=== PATIENT | female | born 1960 | race American Indian/Alaskan Native ===

== ENCOUNTER 2017-07-10 15:30 | Inpatient (IN) | payer SELFPAY ==
[2017-07-10 16:12] LABS: Absolute Lymphocytes (CBC) 2.7 K/uL (0.7-4.9); Absolute Monocytes 0.6 K/uL (0.1-1.3); Absolute Neutrophil 4.1 K/uL (1.8-8.0); Basophils % 1.3 % (0-1.3); Eosinophils % 2.5 % (0-4.4); Hematocrit 19.4 % (36.0-45.0); Lymphocytes % 34.9 % (15.3-44.8); MCH 20.2 pg (27.0-35.0); MCV 68.1 fL (80-100); MPV 7.2 fL (7.6-11.3); Monocytes % 8.2 % (3.3-12.3); RBC Red Blood Cell Count 2.85 M/uL (3.86-4.86)
[2017-07-10 16:24] LABS: Bicarbonate 26 mEq/L (21-31); Glucose Level 136 mg/dL (65-120); Lipase 43 U/L (22-51); Potassium 3.6 mEq/L (3.6-5.0); Sodium Level 139 mEq/L (135-145)
[2017-07-10 16:30] LABS: ALT/SGPT 17 IU/L (10-60); AST/SGOT 19 IU/L (10-42); Albumin 4.1 g/dL (3.2-5.5); Alkaline Phosphatase 68 IU/L (42-121); BUN Blood Urea Nitrogen 11 mg/dL (6-20); Bilirubin Direct < 0.1 mg/dL (0-0.2); Bilirubin Total 0.3 mg/dL (0.3-1.2); Protein, Total 7.7 g/dL (6.0-8.3)
[2017-07-10 16:37] LABS: Urine White Blood Cell Casts OK
[2017-07-10 16:38] LABS: Anisocytosis 3+; Blood Morphology Comment NOTED (NOT SEEN); Hypochromasia 1+; Platelet Estimate INCR
--- NOTE | 2017-07-10 16:48 | EDPHYS ---
Physician Documentation [facility] Name: Tori Brown Age: 57 yrs Sex: Female : 1960 Arrival Date: 07/10/2017 Time: 15:33 Bed 30 Private MD: Anita Ortega ED Physician Dustin Mcconnell HPI: 07/10 16:46 This 57 yrs old Other Female presents to ER via Ambulatory with complaints of Abnormal jr8 Lab Results. 16:46 Patient sent to ED after getting lab results back. Found to be moderately anemic withy jr8 hemoglobin at 5.5. Has been feeling more tired and fatigued . Severity of symptoms: At their worst the symptoms were moderate in the emergency department the symptoms are unchanged. The patient has not experienced similar symptoms in the past. The patient has been recently seen by a physician:. Historical: - Allergies: 15:38 No Known Allergies; aa5 - Home Meds: 15:38 omeprazole Oral [Active]; aa5 - PMHx: 15:38 GERD; aa5 - PSHx: 15:38 None; aa5 - Immunization history:: Adult Immunizations unknown. - Social history:: Smoking status: Patient/guardian denies using tobacco. - Ebola Screening: : No symptoms or risks identified at this time. ROS: 16:44 Eyes: Negative for injury, pain, redness, and discharge, ENT: Negative for injury, jr8 pain, and discharge, Neck: Negative for injury, pain, and swelling, Cardiovascular: Negative for chest pain, palpitations, and edema, Respiratory: Negative for shortness of breath, cough, wheezing, and pleuritic chest pain, Abdomen/GI: Negative for abdominal pain, nausea, vomiting, diarrhea, and constipation, Back: Negative for injury and pain, MS/Extremity: Negative for injury and deformity, Skin: Negative for injury, rash, and discoloration, Neuro: Negative for headache, weakness, numbness, tingling, and seizure. 16:44 Constitutional: Positive for fatigue, malaise. Exam: 16:36 Head/Face: Normocephalic, atraumatic. ENT: Nares patent. No nasal discharge, no jr8 septal abnormalities noted. Tympanic membranes are normal and external auditory canals are clear. Oropharynx with no redness, swelling, or masses, exudates, or evidence of obstruction, uvula midline. Mucous membranes moist. Neck: Trachea midline, no thyromegaly or masses palpated, and no cervical lymphadenopathy. Supple, full range of motion without nuchal rigidity, or vertebral point tenderness. No Meningismus. Cardiovascular: Regular rate and rhythm with a normal S1 and S2. No gallops, murmurs, or rubs. Normal PMI, no JVD. No pulse deficits. Respiratory: Lungs have equal breath sounds bilaterally, clear to auscultation and percussion. No rales, rhonchi or wheezes noted. No increased work of breathing, no retractions or nasal flaring. Back: No spinal tenderness. No costovertebral tenderness. Full range of motion. Skin: Warm, dry with normal turgor. Mild palor noted MS/ Extremity: Pulses equal, no cyanosis. Neurovascular intact. Full, normal range of motion. Neuro: Awake and alert, GCS 15, oriented to person, place, time, and situation. Cranial nerves II-XII grossly intact. Motor strength 5/5 in all extremities. Sensory grossly intact. Cerebellar exam normal. Normal gait. 16:36 Abdomen/GI: Inspection: abdomen appears normal, Bowel sounds: active, all quadrants, Palpation: soft, in all quadrants, mass, is not appreciated, rebound tenderness, is not appreciated, voluntary guarding, is not appreciated, involuntary guarding, is not appreciated, no appreciated organomegaly, Rectal exam: rectal tone normal, Stool: brown, guaiac negative, hemorrhoid(s), external, without bleeding, without inflammation, without thrombosis, without pain, mass, is not appreciated, swelling, is not appreciated, tenderness, is not appreciated, fecal impaction, is not appreciated, the exam is chaperoned by the nurse, Indicators: McBurney's point is not tender, Ordoñez's sign is negative, Rovsing's sign is negative, Liver: no appreciated palpable abnormalities, tenderness, is not appreciated. 16:37 Eyes: Periorbital structures: appear normal, Pupils: equal, round, and reactive to jr8 light and accomodation, Extraocular movements: intact throughout, Conjunctiva: pale, bilaterally, Corneas: are normal, Sclera: no appreciated abnormality, Anterior chamber: normal, Lids and lashes: appear normal. Vital Signs: 15:37 BP 158 / 82; Pulse 113; Resp 16 S; Temp 99.1(TE); Pulse Ox 100% on R/A; Pain 0/10; aa5 15:40 Weight 54.88 kg (R); Height 4 ft. 11 in. (149.86 cm) (R); aa5 17:30 BP 131 / 68; Pulse 101; Resp 16; Pulse Ox 100% on R/A; rk2 18:30 BP 122 / 59; Pulse 90; Resp 17; Pulse Ox 100% on R/A; rk2 15:40 Body Mass Index 24.44 (54.88 kg, 149.86 cm) aa5 MDM: 15:45 Patient medically screened. jr8 16:45 Data reviewed: vital signs, nurses notes, lab test result(s), radiologic studies, CT jr8 scan, and as a result, I will admit patient. Data interpreted: Pulse oximetry: on room air is 100 %. Interpretation: normal. Counseling: I had a detailed discussion with the patient and/or guardian regarding: the historical points, exam findings, and any diagnostic results supporting the discharge/admit diagnosis, lab results, radiology results, the need for further work-up and treatment in the hospital. Physician consultation: Haim Ruggiero DO was called at 16:46, was contacted at 16:46, regarding admission, to the telemetry unit. consult, patient's condition, and will see patient. 07/10 15:54 Order name: Basic Metabolic Panel; Complete Time: 16:36 jr8 07/10 15:54 Order name: CBC with Diff; Complete Time: 16:43 jr8 07/10 15:54 Order name: Creatinine for Radiology; Complete Time: 16:27 jr8 07/10 15:54 Order name: Hepatic Function; Complete Time: 16:36 jr8 07/10 15:54 Order name: Lipase; Complete Time: 16:36 jr8 07/10 15:54 Order name: TS jr8 07/10 16:19 Order name: CBC Smear Scan; Complete Time: 16:43 EDMS 07/10 16:25 Order name: Bb Add On ag 07/10 16:27 Order name: Packed RBC Leukored -1 EDPA 07/10 16:35 Order name: ABO/RH no charge; Complete Time: 16:36 EDMS 07/10 16:36 Order name: Iron Level; Complete Time: 17:29 jr8 07/10 16:36 Order name: Ferritin 07/10 16:36 Order name: TIBC; Complete Time: 17:29 07/10 16:36 Order name: B12; Complete Time: 17:29 07/10 15:54 Order name: IV Saline Lock; Complete Time: 16:04 07/10 15:54 Order name: Labs collected and sent; Complete Time: 16:04 07/10 15:54 Order name: Urine Dipstick-Ancillary (obtain specimen); Complete Time: 16:41 07/10 15:54 Order name: CT Abd/Pelvis - W/Contrast; Complete Time: 18:28 07/10 16:36 Order name: Folic Acid,Serum (folate); Complete Time: 17:07/10 16:47 Order name: Urine Dipstick--Ancillary (enter results); Complete Time: 17:00 ag Administered Medications: No medications were administered Disposition: 07/11 07:27 Co-signature as Attending Physician, Dustin Mcconnell MD I agree with the assessment and kdr plan of care. Disposition: 07/10/17 16:47 Hospitalization ordered by Haim Ruggiero for Observation. Preliminary diagnosis is Acute anemia . - Bed requested for Telemetry/MedSurg (observation). - Status is Observation. rk2 - Condition is Stable. - Problem is new. - Symptoms have improved. UTI on Admission? No Signatures: Dispatcher [employer] EDMS Dustin Mcconnell MD MD [facility] Maddy Mcdonald RN RN aa5 Ronn Garcia PA PA jr8 Amparo Elder Rhonda, RN RN rk2 Corrections: (The following items were deleted from the chart) 07/10 16:38 16:36 Head/Face: Normocephalic, atraumatic. ENT: Nares patent. No nasal discharge, no jr8 septal abnormalities noted. Tympanic membranes are normal and external auditory canals are clear. Oropharynx with no redness, swelling, or masses, exudates, or evidence of obstruction, uvula midline. Mucous membranes moist. Neck: Trachea midline, no thyromegaly or masses palpated, and no cervical lymphadenopathy. Supple, full range of motion without nuchal rigidity, or vertebral point tenderness. No Meningismus. Cardiovascular: Regular rate and rhythm with a normal S1 and S2. No gallops, murmurs, or rubs. Normal PMI, no JVD. No pulse deficits. Respiratory: Lungs have equal breath sounds bilaterally, clear to auscultation and percussion. No rales, rhonchi or wheezes noted. No increased work of breathing, no retractions or nasal flaring. Back: No spinal tenderness. No costovertebral tenderness. Full range of motion. Skin: Warm, dry with normal turgor. Normal color with no rashes, no lesions, and no evidence of cellulitis. MS/ Extremity: Pulses equal, no cyanosis. Neurovascular intact. Full, normal range of motion. Neuro: Awake and alert, GCS 15, oriented to person, place, time, and situation. Cranial nerves II-XII grossly intact. Motor strength 5/5 in all extremities. Sensory grossly intact. Cerebellar exam normal. Normal gait. jr8 17:50 16:47 Hospitalization Ordered by Haim Ruggiero DO for Observation. Preliminary ag diagnosis is Acute anemia . Bed requested for Telemetry/MedSurg (observation). Status is Observation. Condition is Stable. Problem is new. Symptoms have improved. UTI on Admission? No. jr8 19:28 17:50 07/10/2017 16:47 Hospitalization Ordered by Haim Ruggiero DO for Observation. rk2 Preliminary diagnosis is Acute anemia . Bed requested for Telemetry/MedSurg (observation). Status is Observation. Condition is Stable. Problem is new. Symptoms have improved. UTI on Admission? No. ag
--- NOTE | 2017-07-10 16:48 | ER ---
Nurse's Notes [facility] Name: Tori Brown Age: 57 yrs Sex: Female : 1960 Arrival Date: 07/10/2017 Time: 15:33 Bed 30 Private MD: Anita Ortega Diagnosis: Acute anemia Presentation: 07/10 15:35 Presenting complaint: Patient states: "Anita Ortega did some blood work and they aa5 said my hemoglobin was 5.5". Pt states "I did have 2 black bowel movements back in February and they told me I had a stomach ulcer". Transition of care: patient was not received from another setting of care. Onset of symptoms was July 10, 2017. Risk Assessment: Do you want to hurt yourself or someone else? Patient reports no desire to harm self or others. Initial Sepsis Screen: Does the patient meet any 2 criteria? No. Patient's initial sepsis screen is negative. Does the patient have a suspected source of infection? No. Patient's initial sepsis screen is negative. Care prior to arrival: None. 15:35 Method Of Arrival: Ambulatory aa5 15:35 Acuity: ISSAC 3 aa5 Triage Assessment: 16:07 General: Appears in no apparent distress. slender, well groomed, well developed, well rk2 nourished, Behavior is calm, cooperative. Pain: Denies pain. Neuro: Level of Consciousness is awake, alert, obeys commands, confused, Oriented to person, place, time, situation. Respiratory: Airway is patent Trachea midline Respiratory effort is even, unlabored, Respiratory pattern is regular, symmetrical. GI: No signs and/or symptoms were reported involving the gastrointestinal system. Derm: Skin is dry, Skin temperature is warm. Historical: - Allergies: 15:38 No Known Allergies; aa5 - Home Meds: 15:38 omeprazole Oral [Active]; aa5 - PMHx: 15:38 GERD; aa5 - PSHx: 15:38 None; aa5 - Immunization history:: Adult Immunizations unknown. - Social history:: Smoking status: Patient/guardian denies using tobacco. - Ebola Screening: : No symptoms or risks identified at this time. Screenin:06 Abuse screen: Denies threats or abuse. Nutritional screening: No deficits noted. rk2 Tuberculosis screening: No symptoms or risk factors identified. Fall Risk None identified. Assessment: 16:10 Reassessment: Pt. transported to CT on stretcher by tech. rk2 16:22 Reassessment: Pt. returned from CT. rk2 17:55 Reassessment: Blood transfusion started \\T\\ 1753. Pt. appears to be in obvious distress. rk2 Signed blood transfusion consent and pt. pre-medicated per orders. 19:00 Reassessment: Pt. transported to floor with blood infusing, by RN. Care and report rk2 turned over to receiving RN. Vital Signs: 15:37 BP 158 / 82; Pulse 113; Resp 16 S; Temp 99.1(TE); Pulse Ox 100% on R/A; Pain 0/10; aa5 15:40 Weight 54.88 kg (R); Height 4 ft. 11 in. (149.86 cm) (R); aa5 17:30 BP 131 / 68; Pulse 101; Resp 16; Pulse Ox 100% on R/A; rk2 18:30 BP 122 / 59; Pulse 90; Resp 17; Pulse Ox 100% on R/A; rk2 15:40 Body Mass Index 24.44 (54.88 kg, 149.86 cm) aa5 ED Course: 15:33 Patient arrived in ED. mr 15:34 Anita Ortega is Private Physician. mr 15:36 Triage completed. aa5 15:36 Arm band placed on. aa5 15:41 Melissa Lang, KATHYA is Primary Nurse. rk2 15:45 Ronn Garcia PA is PHCP. jr8 15:45 Dustin Mcconnell MD is Attending Physician. jr8 16:06 Patient has correct armband on for positive identification. Bed in low position. Call rk2 light in reach. Pulse ox on. 16:09 CT Abd/Pelvis - W/Contrast Sent. rk2 16:[address] nj 16:19 CT Abd/Pelvis - W/Contrast In Process Unspecified. EDMS 16:41 Ferritin Sent. rk2 16:41 Bb Add On Sent. rk2 16:47 Haim Ruggiero DO is Hospitalizing Provider. jr8 19:27 No provider procedures requiring assistance completed. Patient admitted, IV remains in rk2 place. Administered Medications: No medications were administered Outcome: 16:47 Decision to Hospitalize by Provider. jr8 19:27 Admitted to Med/surg accompanied by nurse, via stretcher, room 211. rk2 19:27 Condition: good 19:27 Instructed on the need for admit. 19:28 Patient left the ED. rk2 Signatures: Dispatcher [employer] Dimple Polk mr McdonaldMaddy, RN RN aa5 Ronn Garcia PA PA jr8 Epifanio Shannon Rhonda, RN RN rk2 Corrections: (The following items were deleted from the chart) 15:38 15:35 Presenting complaint: Patient states: "Anita Ortega did some blood work and aa5 they said my hemoglobin was 5.5". aa5 15:40 15:37 BP 158 / 82; Pulse 113bpm; Resp 16bpm; Spontaneous; Pulse Ox 100% RA; Temp 99.1F aa5 Temporal; aa5
[2017-07-10 16:56] LABS: Urine Blood TRACE (NEG); Urine Glucose NEGATIVE (NEG); Urine Protein NEGATIVE (NEG); Urine Specific Gravity 1.015 (1.005-1.030)
[2017-07-10] MEDS ORDERED: SODIUM CHLORIDE 0.9% 10ML INJ IV PRN (17:08)
[2017-07-10] MEDS ORDERED: ONDANSETRON 4 MG/2 ML VIAL IV PRN (17:08)
[2017-07-10] MEDS ORDERED: ACETAMINOPHEN 650MG/RECT SUPP PR PRN (17:08)
[2017-07-10] MEDS ORDERED: ACETAMINOPHEN 500 MG TAB PO PRN (17:08)
--- NOTE | 2017-07-10 17:18 | P.HP ---
Certification for Inpatient Patient admitted to: Observation With expected LOS: <2 Midnights Patient will require the following post-hospital care: None Practitioner: I am a practitioner with admitting privileges, knowledge of patient current condition, hospital course, and medical plan of care. Services: Services provided to patient in accordance with Admission requirements found in Title 42 Section 412.3 of the Code of Federal Regulations Patient History Date of Service: 07/10/17 Primary Care Provider: Candis Ortega NP Reason for admission: Fatigue, abnormal lab History of Present Illness: 57-year-old female presented to the emergency room after she she was reporting some fatigue and had lab drawn. Her PCP noted that her hemoglobin was 5.5. The patient was sent to the ER for evaluation. The patient reports that she has been having fatigue for quite some time. She reported an episode of melena for about 2 days in February of this year. She does report some pain to the epigastric region whenever she eats. This comes and goes. She does report some heartburn. She does not use nonsteroidal anti- inflammatories on a regular basis. Patient has not noted any rectal bleeding. She does use Prilosec on occasion. In the ER patient was evaluated. Repeat hemoglobin 5.8. Microcytic indices noted. Blood sugar 136. Iron level was low. CT scan as reported from the ER indicates a polyp versus cystic structure in the stomach. Due to the nature the findings the patient was admitted for treatment/evaluation. When I saw the patient ER, she did appear in any distress. Family was at bedside. Home medications list reviewed: Yes - Past Medical/Surgical History Diabetic: No -: GERD Past Surgical History: Patient denies surgical history Psychosocial/ Personal History: The patient is . She has 3 children. She does not work. - Family History Mother -: Heart disease, Diabetes Father -: Stroke - Social History Smoking Status: Never smoker Alcohol use: No CD- Drugs: No Caffeine use: Yes Place of Residence: Home Review of Systems General: Weakness, Malaise, As per HPI Eyes: Unremarkable ENT: Unremarkable Respiratory: Unremarkable Cardiovascular: Unremarkable Gastrointestinal: Abdominal Pain, Melena, As per HPI Genitourinary: Unremarkable Musculoskeletal: Unremarkable Integumentary: Unremarkable Neurological: Unremarkable Lymphatics: Unremarkable Physical Examination - Physical Exam General: Alert, In no apparent distress, Oriented x3, Cooperative HEENT: Atraumatic, Normocephalic, PERRLA, Other (Dry mucous membranes) Neck: Supple, No Thyromegaly Respiratory: Clear to auscultation bilaterally, Normal air movement Cardiovascular: Normal pulses, Regular rate/rhythm Gastrointestinal: Normal bowel sounds, Soft and benign, Non-distended, No masses , No rebound, No guarding, Tenderness (Minimal pain to the epigastric region with deep palpation) Musculoskeletal: No erythema, No tenderness, No warmth Integumentary: No tenderness/swelling, No erythema, No warmth, No cyanosis, Other (Mild jaundice noted.) Neurological: Normal speech, Normal strength at 5/5 x4 extr, Normal tone, Normal affect Rectal: Other (Guaiac stool done by the ER was negative) - Studies Laboratory Data (last 24 hrs) 07/10/17 15:52: Creatinine 0.75 07/10/17 15:52: WBC 7.7, Hgb 5.8 L*, Hct 19.4 L*, Plt Count 677 H 07/10/17 15:52: Sodium 139, Potassium 3.6, BUN 11, Creatinine 0.79, Glucose 136 H, Total Bilirubin 0.3, AST 19, ALT 17, Alkaline Phosphatase 68, Lipase 43 Assessment and Plan - Problems (Diagnosis) (1) Fatigue Current Visit: Yes Status: Acute Plan: Fatigue secondary to anemia. Patient will get transfused 2 units. Will recheck hemoglobin after that time. If still less than 7, patient may require more blood. GI has been consulted to further evaluate. CT scan was abnormal showing possible cystic versus polyp structure. Patient will likely need EGD in the morning. I will keep the patient NPO. Will provide IV Protonix. No active bleeding noted at this time. Qualifiers: Fatigue type: unspecified Qualified Code(s): R53.83 - Other fatigue (2) Epigastric abdominal pain Current Visit: Yes Status: Acute Plan: Patient reports epigastric abdominal pain for quite some time. This may be GERD related. CT scan shows some abnormality. Patient will need EGD to further assess. (3) Anemia Current Visit: Yes Status: Acute Plan: Patient was severe iron deficiency anemia. Will continue with above plan of care. Patient to get transfuse. GI consulted. Anticipate EGD tomorrow morning. Qualifiers: Anemia type: iron deficiency Iron deficiency anemia type: inadequate dietary iron intake Qualified Code(s): D50.8 - Other iron deficiency anemias (4) GERD (gastroesophageal reflux disease) Current Visit: Yes Status: Suspected Plan: Continue as above. Protonix started Qualifiers: Esophagitis presence: esophagitis presence not specified Qualified Code(s) : K21.9 - Gastro-esophageal reflux disease without esophagitis (5) Abnormal CT scan Current Visit: Yes Status: Acute Plan: Await final results of CT scan. ER reports preliminary indicates polyp versus cystic structure in the stomach Discharge Plan: Home Plan to discharge in: 24 Hours - Advance Directives Does patient have a Living Will: No Does patient have a Durable POA for Healthcare: No - Code Status/Comfort Care Code Status Assessed: Yes Time Spent Managing Pts Care (In Minutes): 55
[2017-07-10 17:19] LABS: Ferritin 2.7 ng/ml (11.0-306.8)
[2017-07-10] MEDS ORDERED: ACETAMINOPHEN 325 MG TABLET ONE (17:22)
[2017-07-10] MEDS ORDERED: HYDROCORTISONE SUC 100 MG INJ ONE (17:22)
[2017-07-10] MEDS ORDERED: DIPHENHYDRAMINE 50 MG/ML VIAL ONE (17:22)
[2017-07-10 17:23] LABS: Folic Acid, (Folate) 13.4 ng/ml (>5.21)
[2017-07-10] MEDS ORDERED: NA CHLORIDE 0.9% 500 ML ONE (17:36)
--- NOTE | 2017-07-10 18:02 | RAD REPORT ---
EXAM DESCRIPTION: CT - Abdomen Pelvis W Contrast - 07/10/2017 4:19 pm CLINICAL HISTORY: Abdominal pain, GI bleed COMPARISON: None. TECHNIQUE: Biphasic, helical CT imaging of the abdomen and pelvis was performed following 100 ml non -ionic IV contrast. Oral contrast was given. All CT scans are performed using dose optimization technique as appropriate and may include automated exposure control or mA/KV adjustment according to patient size. FINDINGS: No suspicious findings in the lung bases. The liver, spleen, and pancreas show no suspicious findings. Gallbladder is contracted accentuating t he wall. Active gallbladder process is doubtful. No biliary tree dilatation. Symmetric renal function is seen with no hydronephrosis or suspicious renal mass. No pyelonephritis o r acute renal parenchymal process. No urinary bladder abnormality. Uterus and ovaries show no suspici ous findings. Along the posterior wall body of the stomach there is a 5.8 x 3.5 x 3.8 centimeter mass. Approximatel y 2 x 2 centimeter portion of this mass extends outside of the gastric wall. Bulk of the mass extends into the lumen. There is enhancement along the periphery of this mass believed to be gastric mucosal lining. This mass is believed to be arising from the wall of the stomach. Gastric submucosal tumor is the primary consideration. Gastric malignancy is not excluded but felt to be lesser in likelihood. Gastric polyp also felt to be lesser in likelihood. There is some irregularity along the wall. This mass is a likely source for the anemia and GI bleed. Lanza of the gastric antrum are mildly prominent suspected to be peristalsis artifact rather than ant ritis. No small bowel dilatation, mass or wall thickening. No colon dilatation, mass or colon wall th ickening. No free air, free fluid or pneumatosis. No hernia or bulky lymphadenopathy. No adrenal abnormality. No suspicious bony findings. IMPRESSION: Approximately 6 centimeter mass of the stomach believed to arise from the posterior wall . Gastric submucosal tumor (SMT) is the primary consideration. Gastric malignancy or gastric polyp are felt to be lesser in likelihood. There is some irregularity along the periphery of this mass which is believed to be gastric mucosa. T his is felt to be a likely source for the GI bleed and subsequent anemia. No other stomach acute finding and no large or small bowel finding as a source for GI bleed. No ascites, omental thickening, lymphadenopathy or other suspicious abdominal or pelvic process.
[2017-07-10] MEDS: PANTOPRAZOLE 40 MG INJ IVP SCH ×2 (21:00→23:52)
[2017-07-10 22:39] VITALS: BMI 24.4
[2017-07-10] MEDS ORDERED: FUROSEMIDE 20 MG/ 2ML VIAL IV ONE (23:42)
[2017-07-11 00:47] LABS: Hematocrit 27.4 % (36.0-45.0)
[2017-07-11 04:56] LABS: Absolute Lymphocytes (CBC) 2.5 K/uL (0.7-4.9); Absolute Monocytes 0.6 K/uL (0.1-1.3); Absolute Neutrophil 5.9 K/uL (1.8-8.0); Basophils % 1.1 % (0-1.3); Eosinophils % 0.6 % (0-4.4); Hematocrit 27.8 % (36.0-45.0); Lymphocytes % 27.4 % (15.3-44.8); MCH 24.3 pg (27.0-35.0); MCV 74.6 fL (80-100); MPV 7.1 fL (7.6-11.3); RBC Red Blood Cell Count 3.73 M/uL (3.86-4.86)
[2017-07-11 05:45] LABS: Magnesium 2.2 mg/dL (1.8-2.5); Potassium 4.3 mEq/L (3.6-5.0); Thyroid Stimulating Hormone 1.2 uIU/mL (0.34-5.60)
[2017-07-11] MEDS: PANTOPRAZOLE 40 MG INJ IVP SCH (09:14)
[2017-07-11] MEDS ORDERED: Ringers Lactate 1,000 ML IV ONE (10:40)
[2017-07-11] MEDS ORDERED: PROPOFOL 200 MG/20 ML VIAL IV ONE ×2 (11:53→12:23)
--- NOTE | 2017-07-11 12:32 | ENDO RPT ---
[address], [address] EGD PROCEDURE REPORT EXAM DATE: 07/11/2017 PATIENT NAME: Tori Brown MR#: [id number] BIRTHDATE: 1960 ATTENDING: Kareem Cartagena Dr STATUS: inpatient - [facility] [employer] FLOOR LAYER: Pamela Virk and Emmy Banda RN INDICATIONS: The patient is a 57 yr old Female here for an EGD due to iron deficiency anemia, GERD, and nausea and vomiting PROCEDURE PERFORMED: EGD with biopsy MEDICATIONS: Per Anesthesia. TOPICAL ANESTHETIC: none CONSENT: The patient understands the risks and benefits of the procedure and understands that these risks include, but are not limited to: sedation, allergic reaction, infection, perforation and/or bleeding. Alternative means of evaluation and treatment include, among others: physical exam, x-rays, and/or surgical intervention. The patient elects to proceed with this endoscopic procedure. DESCRIPTION OF PROCEDURE: During intra-op preparation period all mechanical medical equipment was checked for proper function. Hand hygiene and appropriate measures for infection prevention was taken. Procedure, possible complications, and alternatives including but not limited to the possibility of bleeding, perforation, tear, infection, sepsis, need for surgery, need for blood transfusion, and anesthesia related complications were explained to the patient. After the risks, benefits and alternatives of the procedure were thoroughly explained, Informed consent was verified, confirmed and timeout was successfully executed by the treatment team. The patient was placed in the left lateral position. The patient was anesthetized with topical anesthesia. Through the anesthetized oropharyngeal area, the scope was passed without any difficulty. The Pentax EG-[id number] ([id number]) endoscope was introduced through the mouth and advanced to the third portion of the duodenum. Retroflexed views revealed a small hiatal hernia. The gastroscope was then slowly withdrawn and removed. A small hiatal hernia was found A mass was found in the body of the stomach. With jumbo forceps, a biopsy was obtained and sent to pathology. Gastric biopsies obtained. Small bowel biopsies obtained with history of iron deficiency anemia. ADVERSE EVENTS: There were no complications. IMPRESSIONS: 1. A small hiatal hernia 2. 3 X 4 cm submucosal mass with 8 mm central ulcer at tip in the body of the stomach, s/p biopsy 3. Gastric biopsies obtained 4. Small bowel biopsies obtained with history of iron deficiency anemia RECOMMENDATIONS: 1. await biopsy results 2. acid suppression therapy 3. endoscopic ultrasound at tertiary 4. work-up for possible GIST tumor or other 6. continue PPI therapy REPEAT EXAM: Return in 1 year(s) for EGD (after probable chemotherapy and/or surgery). Kareem Cartagena Dr eSigned: Kareem Cartagena Dr 07/11/2017 12:32 PM cc: Haim Ruggiero CPT CODES: ICD9 CODES: PATIENT NAME: Tori Brown MR#: [id number]
--- NOTE | 2017-07-11 12:39 | ENDO RPT ---
[address], [address] EGD PROCEDURE REPORT EXAM DATE: 07/11/2017 PATIENT NAME: Tori Brown MR#: [id number] BIRTHDATE: 1960 ATTENDING: Kareem Cartagena Dr STATUS: inpatient - [facility] [employer] MANAGER: Pamela Virk and Emmy Banda RN INDICATIONS: The patient is a 57 yr old Female here for an EGD due to iron deficiency anemia, GERD, abnormal CT abdomen/pelvis revealing mass in body of stomach, and nausea and vomiting PROCEDURE PERFORMED: EGD with biopsy MEDICATIONS: Per Anesthesia. TOPICAL ANESTHETIC: none CONSENT: The patient understands the risks and benefits of the procedure and understands that these risks include, but are not limited to: sedation, allergic reaction, infection, perforation and/or bleeding. Alternative means of evaluation and treatment include, among others: physical exam, x-rays, and/or surgical intervention. The patient elects to proceed with this endoscopic procedure. DESCRIPTION OF PROCEDURE: During intra-op preparation period all mechanical medical equipment was checked for proper function. Hand hygiene and appropriate measures for infection prevention was taken. Procedure, possible complications, and alternatives including but not limited to the possibility of bleeding, perforation, tear, infection, sepsis, need for surgery, need for blood transfusion, and anesthesia related complications were explained to the patient. After the risks, benefits and alternatives of the procedure were thoroughly explained, Informed consent was verified, confirmed and timeout was successfully executed by the treatment team. The patient was placed in the left lateral position. The patient was anesthetized with topical anesthesia. Through the anesthetized oropharyngeal area, the scope was passed without any difficulty. The Pentax EG-[id number] ([id number]) endoscope was introduced through the mouth and advanced to the third portion of the duodenum. Retroflexed views revealed a small hiatal hernia. The gastroscope was then slowly withdrawn and removed. A small hiatal hernia was found A mass was found in the body of the stomach. With jumbo forceps, a biopsy was obtained and sent to pathology. Gastric biopsies obtained. Small bowel biopsies obtained with history of iron deficiency anemia. ADVERSE EVENTS: There were no complications. IMPRESSIONS: 1. A small hiatal hernia 2. 3 X 4 cm submucosal mass with 8 mm central ulcer at tip in the body of the stomach, s/p biopsy 3. Gastric biopsies obtained 4. Small bowel biopsies obtained with history of iron deficiency anemia RECOMMENDATIONS: 1. await biopsy results 2. acid suppression therapy 3. endoscopic ultrasound at tertiary 4. work-up for possible GIST tumor or other 6. continue PPI therapy REPEAT EXAM: Return in 1 year(s) for EGD (after probable chemotherapy and/or surgery). Kareem Cartagena Dr eSigned: Kareem Cartagena Dr 07/11/2017 12:38 PM Revised: 07/11/2017 12:38 PM cc: Haim Ruggiero CPT CODES: ICD9 CODES: PATIENT NAME: Tori Brown MR#: [id number]
--- NOTE | 2017-07-11 16:40 | P.DS ---
Admission Date: 07/11/17 Discharge Date: 07/11/17 Primary Care Provider: Candis Ortega NP Disposition: ROUTINE DISCHARGE Discharge Condition: GOOD Reason for Admission: Fatigue, abnormal lab Consultations: GI Procedures: EGD Brief History of Present Illness: See HPI Hospital Course: Overall pt remained stable in the hospital Patient was initially admitted to the hospital for acute anemia. Was found to have a hemoglobin of 5.8 with black tarry stools. GI was consulted. Patient was started on IV Protonix here. Abdominal CT initially in the ER was consistent with 6 cm stomach mass. GI recommended the patient get an EGD done here in the hospital. Patient was found to have a 3 x 4 cm gastric mass which had ulceration of about 8 mm on the top side of it. GI took biopsies at that point and he was recommended the patient get an endoscopic mucosal removal at a tertiary center. [facility] was consulted patient was accepted over there by the GI doctor along with hospitalist as a primary care provider and patient was transferred to the other hospital for further workup. 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 Patient and family at bedside were made aware of the possible diagnosis and the need for further intervention. Patient and family members demonstrated understanding and then patient was transferred to [facility] for further help. Vital Signs/Physical Exam: Temp Pulse Resp BP Pulse Ox 97.5 F 68 18 101/78 100 07/11/17 12:22 07/11/17 12:22 07/11/17 12:22 07/11/17 12:22 07/11/17 08:00 General: Alert, In no apparent distress HEENT: Atraumatic, PERRLA, EOMI Neck: Supple, JVD not distended Respiratory: Clear to auscultation bilaterally, Normal air movement Cardiovascular: Regular rate/rhythm, Normal S1 S2 Gastrointestinal: Normal bowel sounds, No tenderness Musculoskeletal: No tenderness Integumentary: No rashes Neurological: Normal speech, Normal tone, Normal affect Lymphatics: No axilla or inguinal lymphadenopathy Laboratory Data at Discharge: WBC 9.2 K/uL (4.3-10.9) D 07/11/17 04:21 Hgb 9.1 g/dL (12.0-15.0) L 07/11/17 04:21 Hct 27.8 % (36.0-45.0) L 07/11/17 04:21 Plt Count 523 K/uL (152-406) H D 07/11/17 04:21 Sodium 142 mEq/L (135-145) 07/11/17 04:21 Potassium 4.3 mEq/L (3.6-5.0) 07/11/17 04:21 BUN 10 mg/dL (6-20) 07/11/17 04:21 Creatinine 0.70 mg/dL (0.44-1.00) 07/11/17 04:21 Glucose 99 mg/dL (65-120) 07/11/17 04:21 Magnesium 2.2 mg/dL (1.8-2.5) 07/11/17 04:21 Total Bilirubin 0.3 mg/dL (0.3-1.2) 07/10/17 15:52 AST 19 IU/L (10-42) 07/10/17 15:52 ALT 17 IU/L (10-60) 07/10/17 15:52 Alkaline Phosphatase 68 IU/L (42-121) 07/10/17 15:52 Lipase 43 U/L (22-51) 07/10/17 15:52
[2017-07-11 16:58] VITALS: BP 132/61; TEMP 97.8
[2017-07-11 17:03] VITALS: O2SAT 96
--- NOTE | 2017-09-29 23:22 | CON ---
Date of Consultation: 07/11/2017 Reason For Consultation: Iron-deficiency anemia with hemoglobin of 5.8, iron saturation of 1.6% and ferritin of 2.7. History Of Present Illness: The patient is a 57-year-old white female, presents to emergency room wi th fatigue and abnormal labs. Normal hemoglobin down to 5.5. Recheck with hospital given hemoglobin of 5.8. She has had 2 units of packed RBCs. Hemoglobin of 9.1. Also on admission, her ferritin wa s noted to be low at 2.7, iron saturation of 1.7. She has noted fatigue, melena. In February 2017, s he says none since that time. She said she has had black stools from November 2016 to February 2017 2 to 3 times. She also notes history of nausea, vomiting, and heartburn. CT scan reveals a 6 x 3 cm m ass, approximately 2 cm of the mass extends outside the gastric wall, possibly a just GIST tumor or s tromal tumor. Past Medical History: Significant for gastric reflux disease. Medications: See list. Social History: She is . Three children. No tobacco or alcohol. Family History: Father with a stroke or hypertension. Mother is alive with coronary artery dis ease. Review of Systems: The patient has nausea, vomiting, gastric reflux disease, fatigue, melena 3 times between November and February 2017. Borderline diabetes, nausea, and vomiting. She denies any hematochezia, hematem esis, coffee-ground emesis, hemoptysis, hematuria, dysuria, polydipsia, hemoptysis. She does have me cristin with fatigue. No backaches, muscle aches, joint aches, depression, or anxiety. Physical Examination: Vital Signs: The patient is 4 feet 11 inches, 121 pounds, BMI of 24.4 kg/m2. HEENT: Normocephalic, atraumatic. Anicteric. Pupils equal, round, and reactive to light. Extraocu lar movements intact. Oropharynx is clear. Neck: Supple. No masses. Respirations: Clear to auscultation bilaterally. Cardiac: Regular rate and rhythm. No gallops or rubs. Gastrointestinal: Positive bowel sounds. Soft, nontender, nondistended. No hepatosplenomegaly. Extremities: No clubbing, cyanosis, or edema. 2+ pulses. Neuro: Alert and oriented x3, grossly nonfocal, 5/5 motor strength. Sensation intact to light touch . Laboratory Data: The patient has a white count of 9.2, hemoglobin 9.1 up from 5.8 yesterday, hemato crit 28, MCV of 75 up from 68 yesterday, platelet count 523 down from 677, indicative of possible GI blood loss. Polys of 64%, lymphocytes 27%, monocytes 7%, eosinophils 1%. Sodium 140, potassium 4.3, chloride 109, bicarb 27, BUN 10, creatinine 0.7, glucose 99, calcium 9.3, magnesium 2.2, iron 9.0, i flor saturation of 1.6, ferritin 2.7, both low. Total bilirubin 0.3, direct bilirubin less than 0.1, AST of 19, ALT of 17, alkaline phosphatase 68, total protein 7.7, albumin 4.1, lipase 43, vitamin B12 225, folate of 13.4 with a TSH of 1.2, trace blood, otherwise negative. Imagin.CT of the abdomen and pelvis revealed a 6 cm mass in the posterior wall with approximately 2 cm o f that mass extending outside of the gastric wall consistent with possible just tumor or a gastric hernandez bmucosal stromal tumor. The patient has fatigue and melena 3 times from November 2016 to February 2017 . Hemoglobin of 5.8 with a ferritin of 2.7, iron saturation of 1.6, severe iron-deficiency anemia. 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 3.Gastric reflux disease with nausea and vomiting. 4.Borderline diabetes. Recommendations: 1.EGD. 2.PPI therapy. 3.IV fluids. 4.Serial H and H, and transfuse p.r.n. 5.Keep n.p.o. 6.After pathology review from EGD, we would get Oncology and follow for possible therapy for GIST tumor if this is indeed the diagnosis. TR/ATUL Voice ID: [id number] Report ID: [id number]
== END 2017-07-11 18:45 | disposition short-term general hospital (02) | DRG 376 ==
LOC: ER 15:30 → ERHOLD 16:50 → 2ND 18:19 → OBSVTOIN 07-11 09:13
PROVIDERS: ADMIT Family Medicine; ATTEND Family Medicine
PROC: 0DB68ZX Excision of Stomach, Via Natural or Artificial Opening Endoscopic, Diagnostic (ICD-10-PCS; 2017-07-11)
PROC: 30233N1 Transfusion of Nonautologous Red Blood Cells into Peripheral Vein, Percutaneous Approach (ICD-10-PCS; principal; 2017-07-11 11:30)
DX: C16.2 Malignant neoplasm of body of stomach (principal); K44.9 Diaphragmatic hernia without obstruction or gangrene; D50.9 Iron deficiency anemia, unspecified; I10 Essential (primary) hypertension; Z86.73 Personal history of transient ischemic attack (TIA), and cerebral infarction without residual deficits; K21.9 Gastro-esophageal reflux disease without esophagitis
CPT/HCPCS: 36415; 74177; 80048; 80076; 81003; 82607; 82728; 82746; 83540; 83690; 83735; 84443; 84466; 85014; 85018; 85025; 86850; 86900; 86901; 88305; 88312; 99285; C9113; G0378; J1720; J1940; P9016; Q9967